=== PATIENT | female | born 2000 | race Caucasian/White ===

== ENCOUNTER 2022-06-15 22:42 | Emergency (ER) | payer OTHER, BC ==
[~2022-06-15] VITALS: Ht 162.6 cm; Wt 52.2 kg
[2022-06-15 23:08] VITALS: BP_SYST 139
[2022-06-16] MEDS ORDERED: IBUPROFEN 600 MG TABLET PO ONE (00:45)
--- NOTE | 2022-06-16 01:50 | NUR ---
Patient to ER bed 8 to gown for evaluation. Side rails up. Report given to svetlana ying.
--- NOTE | 2022-06-16 01:55 | NUR ---
ER at bedside examining patient.
[2022-06-16] MEDS ORDERED: NAPR-1172 PO (02:34)
--- NOTE | 2022-06-16 02:46 | NUR ---
Patient given written and verbal discharge instructions by Dr Martins and verbalizes understanding. ER MD discussed with patient the results and treatment provided. Patient in stable condition. ID arm band removed. Rx of Naproxen given. Patient educated on pain management and to follow up with PMD. Pain Scale 2/10. Opportunity for questions provided and answered. Medication side effect fact sheet provided.
[2022-06-16 02:47] VITALS: BP_SYST 127
== END 2022-06-16 02:48 | disposition home or self-care (01) ==
LOC: SED 22:42
DX: S22.32XA Fracture of one rib, left side, initial encounter for closed fracture (principal); S13.4XXA Sprain of ligaments of cervical spine, initial encounter; Z79.899 Other long term (current) drug therapy; V89.2XXA Person injured in unspecified motor-vehicle accident, traffic, initial encounter; Y93.89 Activity, other specified; Y92.89 Other specified places as the place of occurrence of the external cause; Y99.8 Other external cause status
CPT/HCPCS: 71100; 72040-TC; 99284